=== PATIENT | female | born 1950 | race Caucasian/White ===

== ENCOUNTER 2020-02-14 19:24 | Emergency (ER) | payer MEDICARE, SELFPAY ==
--- NOTE | ~2020-02-14 | CT_ITS ---
EXAMINATION: CT brain wo con DATE: 02/14/2020 19:58 INDICATION: Status post trauma. Left for head laceration status post fall. TECHNIQUE: Computed tomography (CT) of the head was performed without intravenous contrast. The dose- length product was 184.12 mGy-cm.The mA was adjusted according to patient size. Iterative reconstruct ion technique was employed. COMPARISON: None FINDINGS: No acute intracranial hemorrhage, infarction, mass or mass effect. No ventriculomegaly or m idline shift. Basilar cisterns are patent. Paranasal sinuses and mastoids are pneumatized. No depress ed skull fractures. Left frontal scalp swelling with skin femi. No underlying skull fracture. IMPRESSION: 1. No acute intracranial abnormality. Reviewed, dictated and finalized at location A.
--- NOTE | ~2020-02-14 | CT_ITS ---
EXAMINATION: CT cervical spine wo con DATE: 02/14/2020 19:58 INDICATION: Neck pain after fall TECHNIQUE: Computed tomography (CT) of the cervical spine was performed without intravenous contrast. The dose-length product was 184 mGy-cm. Automated exposure control and iterative reconstruction tech nique were employed. COMPARISON: None FINDINGS: There is a type II odontoid process fracture with approximately 5 mm dorsal displacement of the superior fragment. There is degenerative anterolisthesis at C3-4 and C5-6 secondary to facet deg enerative change. There is disc narrowing at C6-7. There are mild uncinate degenerative changes of th e mid and lower cervical spine. There are facet degenerative changes at C3-4, C4-5, C5-6. Lung apices are unremarkable. IMPRESSION: 1. Displaced type II odontoid process fracture. Dr. Kinney discussed with Dr. Anton Liang MD at 02/14/2020 20:04 CDT. Reviewed, dictated and finalized at location A.
[2020-02-14 19:30] VITALS: BP 152/94; PULSE 73; RESP 16; TEMP 36.3; O2SAT 94
--- NOTE | 2020-02-14 19:43 | ED.FALL ---
HPI - Fall General Chief Complaint: Fall Stated Complaint: hit head Source: patient and family Mode of arrival: ambulatory Limitations: no limitations History of Present Illness HPI Narrative: this is 69-year-old female presents after a fall outside of her home she tripped on a step hitting her head causing a laceration approximately 5cm in length on her left frontal scalp area with abrasions on the tip of her nose and on her knee. Patient currently it has been drinking and pain is not that well elicited although she is rubbing her neck, there is she denies headache she denies blurry vision with no nausea or vomiting there is no loss of consciousness. complaint: fall Onset (ago): hour(s) Fall from: standing Fall witnessed: yes, by family Place fall occurred: home Loss of consciousness: none Prolonged down time: no Symptoms prior to fall: none Context: tripped/slipped Location of injury: head and face Severity: moderate Quality: dull and aching Related Data Home Medications Medication Instructions Recorded Confirmed Unable to Obtain Home Medications 02/14/20 02/14/20 Allergies Allergy/AdvReac Type Severity Reaction Status Date / Time Penicillins Allergy Unknown Verified 02/14/20 19:44 Review of Systems Review of Systems: All systems reviewed & are unremarkable except as noted in HPI and below PMFSH Past Medical History Medical History HLD (hyperlipidemia) Exam Const: General: no acute distress and alert Orientation/consciousness: patient oriented x3 HENMT: Head: normal to inspection, hematoma and laceration Head images: 1. LAC 5 cm mildly gapping 2. Abrasion bridge of nose 3. small abrasion right frontal scalp area Eyes: Conjunctivae: conjunctivae normal Pupils: Equal, round and reactive pupils present EOM: EOMs intact bilaterally Neck: Neck: normal visual inspection and no lymphadenopathy Chest: Chest palpation & inspection: normal inspection of the chest and abnormal inspection of the chest Resp: Effort & Inspection: normal respiratory effort Auscultation: clear to auscultation bilaterally Cardio: Rate: regular rate Rhythm: regular rhythm GI: Auscultation: normal bowel sounds : General: Yes no CVA tenderness Skin: Wounds: wounds noted Other: wounds noted above Neuro: General: patient oriented x3, moves all extremities, no meningeal signs and no focal motor deficits Extrem: General: normal to inspection Psych: Appearance: grossly normal Mental Status: mental status grossly normal Thought content: Yes Normal thought content present Course Course Emergency Course: Patient was complaining of neck discomfort and was rubbing her neck CT scan that was performed cervical spine showed a Dom toy type 2 process fracture proximal 5mm dorsal displacement. Patient to be transported to [facility] trauma center /emergency department. Transfer Transfered to: [facility] Transfer rationale: Higher acuity Accepting physician: Dr. Loo Procedures Laceration Laceration 1: Date: 02/14/20 Time: 19:48 Site: scalp Side (If applicable): left Size (cm): 5 Description: linear Depth: simple, single layer ====== Skin Level ====== Skin layer closed with: femi Number of sutures: 4 ====== Subcutaneous Layer ====== ====== Muscle Layer ====== ====== Tendon Layer ====== Critical Care Time Critical Care Time Critical Care Time: No Discharge Plan Discharge Clinical Impression: Odontoid fracture with type II morphology Qualifiers: Encounter type: initial encounter Fracture type: closed Fracture alignment: posteriorly displaced Qualified Code(s): S12.111A - Posterior displaced Type II dens fracture, initial encounter for closed fracture Patient Disposition: Acute Care Hospital Condition: Stable Prescriptions: No Action Unable t
--- NOTE | 2020-02-14 20:20 | PC.NURSE ---
Pt requests [facility] for transfer, [facility] contacted and requests pt go to trauma center.
--- NOTE | 2020-02-14 20:27 | PC.NURSE ---
[facility] contacted for trauma transfer. Dr. Gary to accept in ER.
--- NOTE | 2020-02-14 20:35 | PC.NURSE ---
[facility] unavailble for ALS transfer, [facility] contacted.
--- NOTE | 2020-02-14 20:45 | PC.NURSE ---
Pts family updated with pts consent. family phone numbers are son Eric [phone] and daughter in law Eleno [phone].
[2020-02-14 20:48] VITALS: BP 160/92; PULSE 72; RESP 18; O2SAT 98
== END 2020-02-14 21:10 | disposition short-term general hospital (02) ==
PROVIDERS: Emergency Provider Emergency Medicine
DX: S12.111A Posterior displaced Type II dens fracture, initial encounter for closed fracture (principal); W01.0XXA Fall on same level from slipping, tripping and stumbling without subsequent striking against object, initial encounter
CPT/HCPCS: 12002; 70450; 72125; 99284; 99285; L0150